=== PATIENT | female | born 1985 | race Caucasian/White ===

== ENCOUNTER 2017-01-05 09:25 | Outpatient (CLI) | payer BC ==
--- NOTE | 2017-01-05 12:42 | ULT ---
ULTRASOUND OBSTETRICAL COMPLETE: HISTORY: 31-year-old female in second trimester of . Evaluate anatomy, size, and dates. FINDINGS: number: Blue. lie: Transverse with head to maternal left. Maternal cervix: 6 cm long and closed. Placenta: Posterior and low lying, but no placenta previa. Inferior edge of placenta is 2 cm super ior to the internal cervical os. Amniotic fluid volume: Subjectively normal. heart rate: 141 bpm The following anatomy is visualized, with no evidence of anomalies: Head, lateral ventricles, cerebellum, nose and lips, spine, upper limbs, lower limbs, four chamber h eart, umbilical cord, cord insertion, stomach, kidneys, and bladder. biometry: Head circumference (HC): 16.2 cm 19 0d Biparietal diameter (BPD): 4.5 cm 19w 4d Abdominal circumference (AC): 13.5 cm 19w 0d Femur length (FL): 2.8 cm 18w 5d Average ultrasound age (AUA): 18w 6d Estimated date of delivery (MILA): 06/02/2017 Last menstrual period (LMP): 08/29/2016 Gestational age by LMP: 18w 3d Estimated weight (EFW): 262 g (+/- 39g). IMPRESSION: 1. Live second trimester intrauterine gestation. 2. Estimated gestational age of 18 weeks, 6 days. 3. Transverse lie, with head to maternal left. 4. No anatomical abnormalities. richard [] POS: [facility]
== END 2017-01-05 09:26 | disposition home or self-care (01) ==
LOC: ULT 09:25
PROVIDERS: ATTEND Family Medicine
DX: Z33.1 Pregnant state, incidental (principal); O32.2XX0 Maternal care for transverse and oblique lie, not applicable or unspecified; Z3A.18 18 weeks gestation of pregnancy
CPT/HCPCS: 76805

== ENCOUNTER 2017-03-05 11:19 | Outpatient (CLI) | payer BC ==
--- NOTE | 2017-03-05 12:19 | ULT ---
OB ULTRASOUND: Date: 03-05-17 History: Low lying placenta. Technique: Multiple longitudinal and transverse images of an intrauterine is obtained using a multihertz curvilinear transducer. Real-time, color flow and M-mode sonography was used to evaluat e the fetus. FINDINGS: Images demonstrate a viable intrauterine . The placenta is posterior. No evidence of low lyi ng placenta or marginal placenta is seen at this time. The profunda is more than 4 cm away from the c ervical os. The fetus is in a material transverse right presentation. Cardiac activity is confirmed measuring 127 beats/minute. BIOMETRICS: BPD 70 mm 28 weeks 0 day HC 247 mm 26 weeks 6 days AC 224 mm 26 weeks 5 days FL 49 mm 26 weeks 4 days Composite age is 27 weeks 0 days with an estimated date of delivery of 18. Amniotic fluid index measures 14.3 cm. IMPRESSION: Previously noted low lying placenta has migrated upwards. No evidence of marginal or profunda previa seen at this time. The placenta is posterior. POS: [facility]
== END 2017-03-05 11:20 | disposition home or self-care (01) ==
LOC: ULT 11:19
PROVIDERS: ATTEND Family Medicine
DX: O44.42 Low lying placenta NOS or without hemorrhage, second trimester (principal)
CPT/HCPCS: 76805

== ENCOUNTER 2017-05-18 16:03 | Inpatient (IN) | payer BC ==
[2017-05-19] MEDS ORDERED: LR / Pitocin 40 units/1000 ml 1,000 ML IV PRN (03:13)
[2017-05-19] MEDS ORDERED: Meperidine HCl/PF 25 MG/ML VIAL IM/IV PRN (03:13)
[2017-05-19] MEDS ORDERED: Acetaminophen/Codeine 30-300mg Tablet PO PRN (03:13)
[2017-05-19] MEDS ORDERED: Acetaminophen 500 MG TAB PO PRN (03:13)
[2017-05-19] MEDS ORDERED: Misoprostol 200 MCG TAB PR PRN (03:13)
[2017-05-19] MEDS ORDERED: Zolpidem Tartrate 5 MG TAB PO PRN (03:13)
[2017-05-19] MEDS ORDERED: Ondansetron HCl/PF 4 MG/2 ML Vial IVP PRN (03:13)
[2017-05-19] MEDS ORDERED: HYDROcodone/Acetaminophen 5/325 mg Tablet PO PRN (03:13)
[2017-05-19] MEDS ORDERED: Promethazine HCl 25 MG/ML VIAL IM PRN (03:13)
[2017-05-19] MEDS ORDERED: Lidocaine 1% (PF) 30 ML VIAL SC PRN (03:13)
[2017-05-19] MEDS ORDERED: LR 500 ML/Oxytocin 10 units 500 ML IV SCH (03:13)
[2017-05-19 03:39] VITALS: BMI 39.7
[2017-05-19] MEDS: Lactated Ringer's 1,000 ML IV SCH ×2 (03:43→14:57)
[2017-05-19 04:00] LABS: Hemoglobin 11.4 g/dL (12.0-16.0); Mean Corpuscular HGB CONC 34.7 g/dL (32.0-36.0); Mean Corpuscular Volume 86.6 fl (81.0-99.0); Mean Platelet Volume 6.2 fL (7.4-10.4); Platelet Count 286 thou/uL (130-400); RBC Distribution Width 13.2 % (11.5-14.5)
[2017-05-19] MEDS: Misoprostol 100 MCG TAB VAG SCH ×2 (04:06→14:58)
[2017-05-19 04:10] LABS: ALT (SGPT) 10 U/L (8-55); AST (SGOT) 14 U/L (5-34); Albumin 3.2 g/dL (3.5-5.0); Alkaline Phosphatase 272 U/L (40-150); Anion Gap 11 mmol/L (10-20); BUN (Urea Nitrogen) 12 mg/dL (7.0-18.7); Bilirubin, Total 0.5 mg/dL (0.2-1.2); Calc. Creatinine Clearance 212 mL/min (70-130); Calcium 9.1 mg/dL (7.8-10.44); Carbon Dioxide 25 mmol/L (22-29); Chloride 104 mmol/L (98-107); Estimated GFR-MDRD Greater than 90; Glucose 97 mg/dL (70-105); Potassium 3.8 mmol/L (3.5-5.1); Protein, Total 6.2 g/dL (6.0-8.3); Sodium 136 mmol/L (136-145)
[2017-05-19 04:27] LABS: HBSAg Index 0.12 S/CO (0-0.99); Hep B Surf Ag Non-Reactive S/CO (NonReactive); Syphilis Antibody Nonreactive (Nonreactive); Syphilis Antibody Index 0.06 S/CO (<1.00 Non-Reactive)
[2017-05-19 05:41] LABS: Bilirubin Negative (Negative); Blood, Urine Negative (Negative); Clarity CLEAR (Clear); Glucose, Urine (Dipstick) Negative (Negative); Leukocyte Moderate (Negative); Nitrite Negative (Negative); Protein, Urine (Dipstick) Negative (Neg-Trace); Specific Gravity, Urine 1.012 (1.002-1.036)
[2017-05-19 05:43] LABS: Bacteria/HPF 1+ HPF (None Seen); Hyaline Casts/LPF 0-3 HYALINE CAST LPF (0-3 Hyaline); RBC/HPF 0-3 HPF (0-3); Squamous Epithelial 0-3 HPF (0-3)
[2017-05-19 23:25] LABS: Amnisure Internal Control QC ACCEPTABLE (ACCEPTABLE)
[2017-05-19 23:26] LABS: Amnisure Test RUPTURE DETECTED (No Rupture)
[2017-05-20] MEDS ORDERED: Lactated Ringer's 500 ML IV PRN (00:25)
[2017-05-20] MEDS ORDERED: Naloxone HCl 0.4 mg/ml Vial IVP PRN ×2 (00:25)
[2017-05-20] MEDS ORDERED: ePHEDrine/0.9% NaCl/PF SYRINGE 50 mg/10 ml SLOW IVP PRN (00:25)
[2017-05-20] MEDS ORDERED: Ondansetron HCl/PF 4 MG/2 ML Vial IVP PRN ×2 (00:25→09:56)
[2017-05-20] MEDS ORDERED: Eucerin (Mineral Oil/Petrolatum,White) 30 gm Jar TOP PRN (00:25)
[2017-05-20] MEDS ORDERED: diphenhydrAMINE 50 MG/ML VIAL IVP PRN (00:25)
[2017-05-20] MEDS ORDERED: Promethazine HCl 25 MG/ML VIAL IM PRN (00:25)
[2017-05-20] MEDS ORDERED: Fentanyl 4mcg/Marcaine 0.1% Cassette 100 ML EPIDURAL SCH (00:30)
[2017-05-20] MEDS ORDERED: Communication Order-Pharmacy FS SCH (00:30)
[2017-05-20] MEDS: Lactated Ringer's 1,000 ML IV SCH ×2 (01:25→04:29)
[2017-05-20] MEDS: Misoprostol 100 MCG TAB VAG SCH ×4 (04:33→09:55)
[2017-05-20] MEDS: LR 500 ML/Oxytocin 10 units 500 ML IV SCH ×2 (04:34→15:00)
--- NOTE | 2017-05-20 04:58 | PRG ---
DATE OF SERVICE: 05/20/2017 ATTENDING PHYSICIAN: Amanda Mccauley MD I was asked by Dr. Mccauley this evening to perform an amniotomy of the forebag of her patient, Ms. Jerry poon who is a multiparous patient, who she is inducing for PIH. I discussed the situation with the patient and was able to rupture her forebag with amniotic fluid was clear and an IUPC was placed. A t this time, the heart rate tracing and uterine contraction pattern will be watched closely.
[2017-05-20] MEDS: Bupivacaine 0.5% 20 ML, Fentanyl 400 MCG in Sodium Chloride 0.9% 72 ML EPIDURAL SCH ×4 (09:18)
[2017-05-20] MEDS ORDERED: LR / Pitocin 40 units/1000 ml 1,000 ML IV SCH (09:56)
[2017-05-20] MEDS ORDERED: Bisacodyl 10 MG SUPP PR PRN (09:56)
[2017-05-20] MEDS ORDERED: diphenhydrAMINE 25 MG CAP PO PRN (09:56)
[2017-05-20] MEDS ORDERED: Milk Of Magnesia 30 ML UDCUP PO PRN (09:56)
[2017-05-20] MEDS ORDERED: Preparation H Ointment 28 GM TUBE PR PRN (09:56)
[2017-05-20] MEDS ORDERED: HYDROcodone/Acetaminophen 5/325 mg Tablet PO PRN (09:56)
[2017-05-20] MEDS ORDERED: Benzocaine/Menthol 20-0.5% 60 ML CAN TOP PRN (09:56)
[2017-05-20] MEDS: Acetaminophen 325 MG TAB PO PRN ×2 (15:42→20:44)
[2017-05-20] MEDS: Ferrous Sulfate 325 MG TAB PO SCH (17:28)
[2017-05-20] MEDS: Docusate Calcium (SURFAK) 240 MG CAP PO SCH (20:45)
[2017-05-21] MEDS: Acetaminophen/Codeine 30-300mg Tablet PO PRN ×2 (00:45→23:32)
[2017-05-21 06:03] LABS: Hemoglobin 10.5 g/dL (12.0-16.0); Mean Corpuscular HGB CONC 32.6 g/dL (32.0-36.0); Mean Corpuscular Hemoglobin 28.8 pg (27.0-31.0); Mean Corpuscular Volume 88.3 fl (81.0-99.0); Mean Platelet Volume 6.2 fL (7.4-10.4); Platelet Count 271 thou/uL (130-400); RBC Distribution Width 13.5 % (11.5-14.5); Red Blood Cell (RBC) Count 3.65 mill/uL (4.20-5.40); White Blood Cell (WBC) Count 15.4 thou/uL (4.8-10.8)
[2017-05-21] MEDS: Ferrous Sulfate 325 MG TAB PO SCH ×2 (07:22→14:01)
[2017-05-21] MEDS: Prenatal Vitamin 1 TAB PO SCH (08:43)
[2017-05-21] MEDS: Docusate Calcium (SURFAK) 240 MG CAP PO SCH ×2 (08:43→21:27)
[2017-05-21] MEDS: Acetaminophen 325 MG TAB PO PRN ×2 (13:26→18:46)
[2017-05-22 08:56] VITALS: BP 139/74
[2017-05-22] MEDS: Prenatal Vitamin 1 TAB PO SCH (09:22)
[2017-05-22] MEDS: Ferrous Sulfate 325 MG TAB PO SCH (09:22)
[2017-05-22] MEDS: Docusate Calcium (SURFAK) 240 MG CAP PO SCH (09:22)
[2017-05-22 11:13] VITALS: TEMP 97.8
== END 2017-05-22 15:30 | disposition home or self-care (01) | DRG 775 ==
LOC: L&D 05-19 02:59 → UNDOADMIN 05-19 02:59 → 3SW 05-20 12:26 → L&D 05-20 12:26
PROVIDERS: ADMIT Family Medicine; ATTEND Family Medicine
PROC: 0U7C7ZZ Dilation of Cervix, Via Natural or Artificial Opening (ICD-10-PCS; 2017-05-19)
PROC: 3E0P7VZ Introduction of Hormone into Female Reproductive, Via Natural or Artificial Opening (ICD-10-PCS; 2017-05-19)
PROC: 10E0XZZ Delivery of Products of Conception, External Approach (ICD-10-PCS; principal; 2017-05-20)
PROC: 10907ZC Drainage of Amniotic Fluid, Therapeutic from Products of Conception, Via Natural or Artificial Opening (ICD-10-PCS; 2017-05-20)
PROC: 10H07YZ Insertion of Other Device into Products of Conception, Via Natural or Artificial Opening (ICD-10-PCS; 2017-05-20)
DX: O13.4 Gestational [pregnancy-induced] hypertension without significant proteinuria, complicating childbirth (principal); Z37.0 Single live birth; Z3A.38 38 weeks gestation of pregnancy
CPT/HCPCS: 36415; 51702; 76815; 80053; 81001; 84112; 85027; 86780; 87340; C1726; J0595; J2001; J3010; J3490; J7050; J7120